=== PATIENT | female | born 1955 | race Caucasian/White ===

== ENCOUNTER 2019-12-16 08:31 | Outpatient (CLI) | payer MEDICARE, SELFPAY ==
--- NOTE | ~2019-12-16 | MM_ITS ---
EXAMINATION: MM screening effie BI w frankie HISTORY: Screening TECHNIQUE: Craniocaudal and mediolateral oblique 3-D tomosynthesis images were obtained and synthetic 2-D images were generated. CAD analysis was submitted and interpreted. COMPARISON: No prior mammogram is available for comparison at this institution. BREAST PARENCHYMAL COMPOSITION: There are scattered areas of fibroglandular density. FINDINGS: There is no evidence of suspicious mass, calcification, or architectural distortion to sugg est malignancy in either breast. There has been no suspicious interval change. IMPRESSION: 1. No mammographic evidence of malignancy. 2. Recommend routine screening mammography in one year. BI-RADS Category 1: Negative Reviewed, dictated and finalized at location A.
== END 2019-12-16 08:32 | disposition home or self-care (01) ==
PROVIDERS: PCP Internal Medicine; Visit Provider Clinical Nurse Specialist
DX: Z12.31 Encounter for screening mammogram for malignant neoplasm of breast (principal)
CPT/HCPCS: 77063; 77067

== ENCOUNTER 2020-01-12 12:38 | Outpatient (CLI) | payer MEDICARE, SELFPAY ==
--- NOTE | ~2020-01-12 | DEXA_ITS ---
Bone Density Report Name: Ashley Choi Age: 64 Sex: Female Ethnicity: White Date of : 1955 Indication: postmenopausal; asthma or emphysema; Referring Provider: Vane Zamora Study: Bone densitometry was performed. Exam Date: January 12, 2020 Accession number: [id number] Bone Density: Region BMD T-score Z-score Classification AP Spine (L1-L4) 1.174 1.2 3.0 Normal Femoral Neck (Left) 0.675 -1.6 0.0 Osteopenia Total Hip (Left) 0.942 0.0 1.3 Normal Total Hip Bilateral Avg 0.964 0.2 1.5 Normal Femoral Neck (Right) 0.703 -1.3 0.3 Osteopenia Total Hip (Right) 0.984 0.3 1.6 Normal World Health Organization criteria for BMD impression classify patients as: Normal (T-score at or above -1.0), Osteopenia (T-score between -1.0 and -2.5), or Osteoporosis (T-score at or below -2.5). 10-year Fracture Risk(1): Major Osteoporotic Fracture 8.0% Hip Fracture 0.8% Reported Risk Factors: [place] (), Neck BMD=0.675, BMI=41.9 Input outside FRAX(R) limits. Adjusted to:Itpylf=290 kg (1) FRAX(R) Version 3.08. Fracture probability calculated for an untreated patient. Fracture probability may be lower if the patient has received treatment. Clinical Information Provided by Patient: Has the following medical conditions: Asthma or Emphysema Patient maximum height was 68.5 Menopause Age: 53 No regular weight bearing exercise Drinks caffeinated beverages Onset of menses at age 12 Number of children 3 Impression: The patient has low bone mass, based on the Left Femoral Neck T-score. The patient has an estimated ten-year risk of hip fracture of 0.8% and an estimated ten-year risk of major fracture of 8%, based on the WHO FRAX algorithm. Discussion: BONE DENSITY IS LOW AT ONE OR MORE SKELETAL SITES. This patient's lowest T-score is low at one or more skeletal sites. It meets the World Health Organization's (WHO) criteria for ?low bone mass? (T-score between -1.0 and -2.5). The patient's 10-year risk of fracture as calculated by FRAX is less than the threshold where pharmacological therapy is recommended by the National Osteoporosis Foundation (NOF). However, all treatment decisions require clinical judgment and consideration of individual patient factors, including patient preferences, comorbidities, previous drug use, risk factors not captured in the FRAX model (e.g., frailty, falls, vitamin D deficiency, increased bone turnover, interval significant decline in bone density) and possible under or overestimation of fracture risk by FRAX. The patient should follow a healthful lifestyle (good nutrition with adequate calcium and vitamin D, and appropriate weight-bearing exercise). Follow-Up: Consider repeating this study in 2 to 3 years to reassess this patient's status, or sooner if there is some new clinical in
== END 2020-01-12 12:39 | disposition home or self-care (01) ==
LOC: ANHIMG 12:40
PROVIDERS: PCP Internal Medicine; Visit Provider Clinical Nurse Specialist
DX: Z78.0 Asymptomatic menopausal state (principal); M85.852 Other specified disorders of bone density and structure, left thigh; M85.851 Other specified disorders of bone density and structure, right thigh
CPT/HCPCS: 77080

== ENCOUNTER 2020-09-03 15:22 | Outpatient (CLI) | payer MEDICARE, SELFPAY ==
--- NOTE | ~2020-09-03 | US_ITS ---
EXAMINATION:US venous doppler LE LT INDICATION:Left pain TECHNIQUE: Multiple grayscale, color flow and Doppler images of the left lower extremity deep venous systems were obtained and reviewed. COMPARISON:No prior studies for comparison. FINDINGS: The common femoral, superficial femoral and popliteal veins demonstrate normal respiratory variation, augmentation and compressibility. Color flow is also seen within the posterior tibial, pe roneal, greater saphenous and profunda veins. IMPRESSION: 1: No lower extremity deep venous thrombosis. Reviewed, dictated and finalized at location B.
== END 2020-09-03 15:23 | disposition home or self-care (01) ==
PROVIDERS: PCP Internal Medicine; Visit Provider Clinical Nurse Specialist
DX: M25.569 Pain in unspecified knee (principal); R60.9 Edema, unspecified
CPT/HCPCS: 93971

== ENCOUNTER 2020-09-30 12:57 | Outpatient (CLI) | payer MEDICARE, SELFPAY ==
--- NOTE | ~2020-09-30 | XR_ITS ---
EXAMINATION: XR chest 2V DATE: 09/30/2020 13:17 INDICATION: Cough and wheezing TECHNIQUE: PA and lateral views of the chest are obtained. COMPARISON: None available FINDINGS: The lungs are free of acute opacities. There is no pleural effusion or pneumothorax. The ca rdiomediastinal silhouette is normal. There is moderate thoracic spondylosis. IMPRESSION: 1. No acute cardiopulmonary abnormality. Reviewed, dictated and finalized at location B.
== END 2020-09-30 12:58 | disposition home or self-care (01) ==
LOC: ANHIMG 13:01
PROVIDERS: PCP Internal Medicine; Visit Provider Clinical Nurse Specialist
DX: R06.02 Shortness of breath (principal)
CPT/HCPCS: 71046

== ENCOUNTER 2021-09-11 07:25 | Outpatient (CLI) | payer MEDICARE, SELFPAY ==
--- NOTE | 2021-09-11 07:39 | ECHO_ITS ---
Patient Info Name: Ashley Choi Age: 65 years : 1955 Gender: Female Ht: 68 in Wt: 340 lbs BSA: 2.81 m2 HR: 81 bpm BP: 157 / 107 mmHg Technical Quality: Fair Exam Date: 09/11/2021 8:12 AM Exam Location: [facility] Patient Status: Outpatient Admit Date: 09/11/2021 Staff Ordering Physician: Vane Zamora Leasing Assistant: Fang Cole RDCS Attending Provider: Vane Zamora Referring Physician: Sera INFANTE; Exam Type: CA echo doppler color flow Study Info Indications M79.89 - OTHER SPECIFIED SOFT TISSUE DISORDERS Complete two-dimensional, color flow and Doppler transthoracic echocardiogram is performed. Summary 1. Complete two-dimensional, color flow and Doppler transthoracic echocardiogram is performed. 2. Left ventricular chamber dimension is normal. 3. Left ventricular systolic function is normal, estimated at 60-65%. 4. The left ventricular diastolic function is grade I diastolic dysfunction. 5. E/e' 12 is mildly elevated. 6. Global longitudinal strain is abnormal at -14.7%. 7. There is trace tricuspid valve regurgitation. 8. No pulmonary hypertension, estimated pulmonary arterial systolic pressure is 28 mmHg. 9. There is mild pulmonic regurgitation. Left Ventricle E/e' 12 is mildly elevated. Global longitudinal strain is abnormal at -14.7%. Left ventricular chamber dimension is normal. Left ventricular systolic function is normal, estimated at 60-65%. The left ventricular diastolic function is grade I diastolic dysfunction. Right Ventricle Right ventricular systolic function is normal and with normal TAPSE 2.0 cm. Right ventricular chamber dimension is normal. Left Atria Left atrial chamber dimension is normal. Right Atria Right atrial chamber dimension is normal. Aortic Valve The aortic valve is trileaflet. There is no aortic valve stenosis. There is no aortic valve regurgitation. Pulmonic Valve There is mild pulmonic regurgitation. Mitral Valve There is no mitral valve stenosis. There is no mitral valve regurgitation. Tricuspid Valve There is trace tricuspid valve regurgitation. No pulmonary hypertension, estimated pulmonary arterial systolic pressure is 28 mmHg. Pericardium/Pleural There is no pericardial effusion. Inferior Vena Cava Normal inferior vena cava with >50% collapse upon inspiration consistent with normal right atrial pressure, 5 mmHg. Aorta The aortic root size at the sinus of Valsalva is normal. Left Ventricular Outflow Tract Name Value Normal LVOT 2D LVOT Diameter 1.9 cm LVOT Doppler LVOT Peak Gradient 5 mmHg LVOT Mean Gradient 3 mmHg LVOT VTI 24 cm LVOT VTI/AV VTI Ratio 0.9 LVOT Stroke Volume 69 ml LVOT CO 5.2 l/min LVOT CI 1.9 l/min/m2 Pulmonic Valve Name Value Normal
--- NOTE | 2021-09-11 13:26 | WPDPFTINT ---
PFT Procedure Performed PFT Procedure Performed Spirometry with Pre/Post Bronchodilator Plethysmography (Lung Vol) Diffusing Cap (DLCO) Flow Vol Loop PFT Interpretation This is a pulmonary function test with pre and post-bronchodilator spirometry, plethysmography and diffusing capacity. The test was performed and results interpreted in accordance with the 2019 and 2005 ATS/ERS Task Force guidelines respectively using the Global Lung Function Initiative-2012 reference equations. Patient demonstrated good effort and cooperation. Reproducibility criteria were met. The quality of the pre bronchodilator spirometry maneuver was Grade A and post bronchodilator spirometry maneuver was Grade A. Findings: Spirometry: The contour the inspiratory and expiratory flow tracing are normal. The pre bronchodilator FVC is 2.95 L, 87% predicted. The pre bronchodilator FEV1 is 2.38 L, 91% predicted. The pre bronchodilator FEV1: FVC ratio is 81%. The post bronchodilator FVC is 2.69 L, representing a 9% decrease. The post bronchodilator FEV1 is 2.36 L, representing 1% decrease. The post bronchodilator FEV1: FVC ratio was 88%. Plethysmography: The total lung capacity is 5.58 L, 98% predicted. The functional residual capacity is 2.18 L, 67% predicted. The residual volume is 2.11 L, 90% predicted. Diffusing capacity: The diffusing capacity unadjusted for hemoglobin and carboxyhemoglobin is 22.5, 100% predicted. The diffusing capacity adjusted for alveolar volume is 5.26, 127% predicted. Impression: The spirometry is normal without evidence of an obstructive abnormality. There is no significant improvement after inhaling a single dose of albuterol. The total lung capacity is normal with a decreased functional residual capacity. This is an abnormal but nonspecific lung volume pattern. The diffusing capacity is normal. There are no prior studies for comparison
== END 2021-09-11 07:26 | disposition home or self-care (01) ==
LOC: ANHCARD 07:30
PROVIDERS: PCP Internal Medicine; Visit Provider Clinical Nurse Specialist
DX: M79.89 Other specified soft tissue disorders (principal); R06.02 Shortness of breath; E78.5 Hyperlipidemia, unspecified; J45.909 Unspecified asthma, uncomplicated
CPT/HCPCS: 93306; 94060; 94726; 94729

== ENCOUNTER 2024-02-24 14:45 | Outpatient (CLI) | payer MEDICARE, SELFPAY ==
--- NOTE | ~2024-02-24 | XR_ITS ---
EXAMINATION: XR chest 2V 02/24/2024 15:03 INDICATION: Cough PROCEDURE: 2 view chest COMPARISON: 09/30/2020 FINDINGS: The lungs are clear. The cardiomediastinal silhouette is within normal limits. There are no pleural effusions. There is no pneumothorax suspected. IMPRESSION: 1: NO ACUTE CARDIOPULMONARY DISEASE. Reviewed, dictated and finalized at location B. ODONTAL ASSISTANT
== END 2024-02-24 14:46 | disposition home or self-care (01) ==
LOC: GOSHIMG 14:47
PROVIDERS: PCP Internal Medicine; Visit Provider Nurse Practitioner
DX: R05.9 Cough, unspecified (principal)
CPT/HCPCS: 71046

== ENCOUNTER 2024-07-10 10:59 | Outpatient (CLI) | payer MEDICARE, SELFPAY ==
--- NOTE | ~2024-07-10 | CT_ITS ---
CT Scan of the Chest without Contrast: Clinical Indication: Bronchitis Technique: Contiguous sections were acquired throughout the chest without intravenous contrast. Dose reduction technique was used on this scan by utilizing automated exposure control and iterative recon struction technique. The dose-length product (DLP) was 955.70 mGy-cm. Findings:. 13 mm hypodense nodule at the inferior aspect of the thyroid isthmus. There is no evidence of any significant mediastinal, hilar or axillary lymphadenopathy. The mediastin al soft tissues appear normal. There is no evidence of pleural or pericardial effusion. The lungs are clear. No pulmonary nodules or infiltrates are noted. Images through the upper abdomen reveal 2.3 cm right adrenal nodule. Impression: Clear lungs. 2.3 cm right adrenal nodule, indeterminate. Follow-up MR advised to attempt to confirm adenoma. 13 mm hypodense nodule at the thyroid isthmus. Follow-up thyroid ultrasound should be considered. Reviewed, dictated and finalized at [facility]. Impression: Clear lungs. 2.3 cm right adrenal nodule, indeterminate. Follow-up MR advised to attempt to confirm adenoma. 13 mm hypodense nodule at the thyroid isthmus. Follow-up thyroid ultrasound oly uld be considered.
--- OUTSIDE RECORDS SUMMARY | 2024-07-10 12:59 | XMS_ITS | Clinical Summary ---
Author Organization [facility] Address [address] [place] [id number] Phone Care Team Providers Care Workforce Staffing Advisor Name Role Phone Adria Haney MD Primary Care Provider [phone] Allergies Active Allergy Reactions Criticality Noted Date Comments Codeine Unknown 05/24/2013 Ramipril Unknown 05/24/2013 Medications ALBUTEROL INHALATION Take by inhalation. Active LORazepam (ATIVAN) 1 mg tablet Take 1 Tab by mouth every 6 hours as needed for Anxiety. 5 Tab None 05/25/2013 Active Active Problems Problem Noted Date Diagnosed Date Chest pain 05/24/2013 Panic attack 05/24/2013 GERD (gastroesophageal reflux disease) 4 HTN (hypertension) 05/24/2013 Immunizations Immunization Administration Dates Next Due Influenza Seasonal Unspecified Formulation IM Pneumococcal conjugate, unspecified formulation 04/15/2012 Family History Relation Name Status Comments Daughter 1 Alive Daughter 2 Alive Son Alive Social History Tobacco Use Types Packs/Day Years Used Date Smoking Tobacco: Never Alcohol Use Standard Drinks/Week Comments No 0 (1 standard drink = 0.6 oz pur e alcohol) Comments No Sex and Gender Information Value Date Recorded Sex Assigned at Not on file Legal Sex Female 12:16 PM CDT Gender Identity Not on file Sexual Orientation Not on file Occupation Industry Job Start Date Job End Date Not on file Not on file Not on file Not on file Last Filed Vital Signs Vital Sign Reading Time Taken Comments Blood Pressure 131/79 05/25/2013 4:41 AM CDT Pulse 78 05/24/2013 3:00 PM CDT Temperature 36.8 C (98.2 F) 05/25/2013 4:41 AM CDT Respiratory Rate 15 05/25/2013 4:41 AM CDT Oxygen Saturation 96% 05/25/2013 4:41 AM CDT Inhaled Oxygen Concentration - - Weight 145.9 kg (321 lb 9 oz) 05/25/2013 4:41 AM CDT Height 172.7 cm (5' 8 ) 05/24/2013 6:28 PM CDT Body Mass Index 48.89 05/24/2013 6:28 PM CDT Plan of Treatment Health Maintenance Due Date Last Done Comments DTAP/TDAP/TD VACCINES (1 - Tdap) 1972 BREAST CANCER SCREENING 1993 COLORECTAL SCREENING 1998 Colorectal Cancer Screening 1998 FIT-DNA Q 3 years 1998 FIT/FOBT Q 1 year 1998 Flex Sig/CT Colonography Q 5 years 1998 PNEUMOCOCCAL VACCINE 50+ YEARS (1 of 1 - PCV) 12/26/19 04 04/15/2012 ZOSTER VACCINE (1 of 2) 12/26/2003 OSTEOPOROSIS SCREENING 2018 INFLUENZA VACCINE (#1) 2023 2012 RSV VACCINE (60+ or ) (1 - 1-dose 75+ series) 2028 Insurance [facility] OPEN ACCESS O Advance Directives For more information, please contact: [phone] * Full Code (Latest Code Status on File) Date Activated Date Inactivated Comments 05/24/2013 6:29 PM 05/25/2013 2:34 PM Care Teams Workforce Staffing Advisor Relationship Specialty Start Date End Date Adria Haney MD [address] [facility] [place] [phone] PCP - General Internal Medicine 05/24/13
--- OUTSIDE RECORDS SUMMARY | 2024-07-10 12:59 | XMS_ITS | Clinical Summary ---
Author Organization [facility] Address [address] [place] [address] Care Team Providers Care Apartment House Manager Name Role Phone Lj Chamberlain DO Primary Care Provider [phone] Allergies Active Allergy Reactions Criticality Noted Date Comments Amlodipine Swelling,Rash Medium Reaction: swelling, rash, , Reaction: swelling, rash, Codeine Nausea only,Vomiting Reaction: Nausea, Vomiting, Ramipril Medications orvyqxxs-onj-ari n-FA-lutein (CENTRUM SILVER WOMEN) 8 mg iron-400 mcg-300 mcg tablet 0 0 7 Active omega 0-gsn-niz-fish oil (FISH OIL) 300-1,000 mg capsule,delayed release(DR/EC) [address] (PROTONIX) 40 mg EC tablet take 1 tablet by oral route every day [address] (PROTONIX) 40 mg EC tablet take 1 tablet by oral route every day 30 4 5 Active glucosamine-anne droitin (glucosamine-cho ndroitin) 500-400 mg capsule Take 2 tablets by mouth daily Active rizatriptan (MAXALT) 5 mg tablet Take 1 tablet (5 mg total) by mouth as needed Active famotidine (PEPCID) 40 mg tabletIndication s:Laryngeal spasm Take 1 tablet (40 mg total) by mouth nightly 90 tablet 3 2 Active calcium citrate-vitamin D3 200 mg-3.125 mcg (125 unit) tablet Take by mouth Active fluticasone propionate (FLONASE) 50 mcg/actuation nasal sprayIndications :Upper respiratory tract infection, unspecified type Administer 2 sprays into each nostril daily 1 each 4 Active triamcinolone (KENALOG) 0.1 % creamIndications :Contact dermatitis, unspecified contact dermatitis type, unspecified trigger Apply topically 3 (three) times a day for 10 days 28.4 g 4 Active albuterol HFA (PROVENTIL HFA,VENTOLIN HFA,PROAIR HFA) 90 mcg/actuation inhalerIndicatio ns:Acute cough Inhale 2 puffs every 6 (six) hours as needed for wheezing for up to 7 days 1 each 4 Active benzonatate (TESSALON) 100 mg capsuleIndicatio ns:Cough Take 1 capsule (100 mg total) by mouth 3 (three) times a day as needed for cough 42 capsule 4 Active Active Problems Problem Noted Date Diagnosed Date 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 Zachary Heard [phone] [address] [place] [address] Venous stasis 09/12/2020 Primary osteoarthritis of both knees 09/12/2020 Esophageal dysphagia 08/11/2017 Sprain of medial collateral ligament of right kn ee 11/20/2016 Morbid obesity with BMI of 45.0-49.9, adult 10/2016 GERD (gastroesophageal reflux disease) 4 Panic attack 05/24/2013 HTN (hypertension) 05/24/2013 Chronic cough Immunizations Immunization Administration Dates Next Due Influenza, Quad, Adjuvantate d, Intramuscular 11/28/2019 Influenza, Quadrivalent, Spl it, Preservative Free, Intramuscular 12/02/2018 Influenza, Trivalent, IM (MDV) 2012,2011,12/24/2010 Influenza, Trivalent, Preser vative Free, Intramuscular 01/05/2013 Pneumococcal Conjugate, Unspecified 04/15/2012 Pneumococcal Polysaccharide PPV23 05/04/2013,03/2005 Tdap 01/15/2020 Surgical History Surgery Date Site/Laterality Comments TUBAL LIGATION 1982 Bilateral tubal ligation TONSILLECTOMY 1961 Tonsillectomy Medical History Medical History Date Comments Hx Other Medical 1991 fatty cyst Hx Other Medical bronchitis , sw ollen glands Asthma Asthma Family History Medical History Relation Name Comments Coronary artery disease Father Lara nary artery disease; Other Father Alive and well; Other Mother Unknown; Heart disease Other 1 Family history of Cardiovascular disease; Diabetes Other 2 Family history of Diabetes mellitus; Hypertension Other 3 Family history of Hypertension; Relation Name Status Comments Father Alive Mother Alive Other 1 Other 2 Other 3 Social History Tobacco Use Types Packs/Day Years Used Date Smoking Tobacco: Never Smokeless Tobacco: Never Tobacco Cessation:Counseling Given: Not Answered Alcohol Use Standard Drinks/Week Comments No 0 (1 standard drink = 0.6 oz pur e alcohol) Comments Unknown Sex and Gender Information Value Date Recorded Sex Assigned at Not on file Legal Sex Female 6:28 PM PUBLIC WORKS COMMISSIONER Gender Identity Not on file Sexual Orientation Not on file Obstetrics History Last Filed Vital Signs Vital Sign Reading Time Taken Comments Blood Pressure 130/82 01/31/2024 8:27 AM PUBLIC WORKS COMMISSIONER Pulse 68 01/31/2024 8:27 AM PUBLIC WORKS COMMISSIONER Temperature 36.6 C (97.9 F) 01/31/2024 8:27 AM PUBLIC WORKS COMMISSIONER Respiratory Rate 20 01/31/2024 8:27 AM PUBLIC WORKS COMMISSIONER Oxygen Saturation 99% 01/31/2024 8:27 AM PUBLIC WORKS COMMISSIONER Inhaled Oxygen Concentration - - Weight 153.8 kg (339 lb) 01/31/2024 8:27 AM PUBLIC WORKS COMMISSIONER Height 172.7 cm (5' 8 ) 01/31/2024 8:27 AM PUBLIC WORKS COMMISSIONER Body Mass Index 51.54 01/31/2024 8:27 AM PUBLIC WORKS COMMISSIONER Plan of Treatment Health Maintenance Due Date Last Done Comments Breast Cancer Screening-Mammogram 1955 Depression Screening 1955 Fall Risk Assessment 1955 Hepatitis C Screening 1955 Hepatitis B Screening 12/26/1971 Zoster Vaccine (2 of 3) 09/17/2014 07/23/2014 Well Visit 65+ 2018 Osteoporosis Screening-Bone Density Scan 10/26/2019 10/25/2017 Influenza Vaccine (#1) 2023 3, 01/02/2022, 11/27/2020, Additional history exists Colon Cancer Screening-Colonoscopy 02/11/2025 02/11/2015, 02/11/2015 DTaP/Tdap/Td Vaccine (2 - Td or Tdap) 01/14/2030 01/15/2020 Pneumococcal vaccine 65+ Completed 014, 04/15/2012, 03/15/2005 Colon Cancer Screening-CT Colonography Discontinued 02/11/2015, 02/11/2015 Colon Cancer Screening-DNA Stool Discontinued 02/12/20 15, 02/11/2015 Colon Cancer Screening-FIT Discontinued 02/11/2015, Colon Cancer Screening-Sigmoidoscopy Discontinued 02/11/2015, 02/11/2015 Procedures Procedure Name Priority Date/Time Associated Diagnosis Comments DEXA AXIAL SKELETON BONE DENSITY 1 OR MORE SITES Schedule Routine, Read Routine (OP Routine) 10/25/2017 8:21 AM CDT Asymptomatic menopausal state COLONOSCOPY IMAGES 02/11/2015 from Last 3 Months or Most Recently Relevant to Health Maintenance Results * Dexa Axial Skeleton Bone Density 1 or 2 Site (10/25/2017 8:21 AM CDT) Anatomical Region Laterality Modality Body N/A Other 10/25/2017 8:22 AM CDT Impressions 10/25/2017 8:23 AM CDT Normal bone mineral density. COMMENT: W.H.O. defines the T-score of between -1 and -2.5 as osteopenia, the level at which there may be an increased risk of developing osteoporosis and fractures in the future. Osteoporosis is defined as T-score lower than -2.5 (significantly increased risk of fracture due to osteoporosis). T-score is a comparison to peak bone mineral density of young adult reference population. Z-score is a comparison to bone mineral density of sex and age group population. Electronically signed by: Darwin Maynard M.D. Narrative 10/25/2017 8:23 AM CDT EXAM: DEXA Bone Density Axial HISTORY: Asymptomatic menopausal state Assess bone density COMPARISON: None FINDINGS: The mean bone mineral content of the lumbar spine is 1.148 g/cm2 . The T-score is 0.9 consistent with normal bone mineral density. The mean bone mineral content of the hip is 0.742 g/cm2 . The T-score is -1.0 consistent with normal bone mineral density. Procedure Note Darwin Maynard MD - 10/25/2017 EXAM: DEXA Bone Density Axial HISTORY: Asymptomatic menopausal state Assess bone density COMPARISON: None FINDINGS: The mean bone mineral content of the lumbar spine is 1.148 g/cm2 . The T-score is 0.9 consistent with normal bone mineral density. The mean bone mineral content of the hip is 0.742 g/cm2 . The T-score is -1.0 consistent with normal bone mineral density. IMPRESSION: Normal bone mineral density. COMMENT: W.H.O. defines the T-score of between -1 and -2.5 as osteopenia, the level at which there may be an increased risk of developing osteoporosis and fractures in the future. Osteoporosis is defined as T-score lower than -2.5 (significantly increased risk of fracture due to osteoporosis). T-score is a comparison to peak bone mineral density of young adult reference population. Z-score is a comparison to bone mineral density of sex and age group population. Electronically signed by: Darwin Maynard M.D. Alison Ramon ASSISTANT COMMISSIONER IMG DXA PROCEDURES Final Res ult * COLONOSCOPY IMAGES (02/11/2015) Anatomical Region Laterality Modality Other Narrative 02/11/2015 Ordered by an unspecified provider. Historical Provider GI PROCEDURE ORDERABLES F inal Result from Last 3 Months or Most Recently Relevant to Health Maintenance Insurance MEDICARE [employer] SENIOR SUPPLEMENT MEDICARE [employer] SENIOR SUPPLEMENT Care Teams Apartment House Manager Relationship Specialty Start Date End Date Lj Chamberlain DO PCP - General Internal Medicine 10/05/16
--- OUTSIDE RECORDS SUMMARY | 2024-07-10 12:59 | XMS_ITS | Continuity of Care Document ---
Author Organization [facility] Address [address] [place] [address] [place] [address] Phone Care Team Providers Care Bomb Loader Name Role Phone Neymar Abrams MD Unavailable Unavailable Procedures Procedure Date Office/outpatient Visit, [facility] Removal Of Skin Lesion Advance Directives Directive Yes / No Effective Date File Name No Information Encounters Encounter Description Practice Location Reason(s) For Visit Diagnoses Date Provider Providers Copied on Encounter Office/outpat ient Visit, [facility], [id number] [place] [address] [address], [place], [place], [id number], [place] tel:[phone] [address] [place] Griselda Wilkins No Information 1 Aliza Blackmon. [address] [facility], [place], [place], [id number], [place]. tel:[phone] Family History Family Member Type Diagnosis Age At Onset No Information Payers Payer name Insurance type Covered constitution party ID Authoriza tidru(s) [facility] [id number] Social History Type Description Quantity Date Captured Comments Sex Female Smoking Status No Information Chief Complaint And Reason For Visit No Information Reason For Referral Reason For Referral No Information History Of Present Illness Encounter Date Complaint History Of Prese nt Illness No Information Functional Status Date Functional Assessmen t No Information Instructions Date Instruction Additional Infor mation No Information Assessments Type Assessment Date No Information Patient Care Teams Name Effective Dates (start - stop) Status Members No Information
--- OUTSIDE RECORDS SUMMARY | 2024-07-10 12:59 | XMS_ITS | Referral Summary ---
Author Organization [facility] Address [address] [place] [address] Care Team Providers Care Sole Ruffer Name Role Phone Lj Chamberlain DO Primary Care Provider [phone] Allergies Active Allergy Reactions Criticality Noted Date Comments Amlodipine Swelling,Rash Medium Reaction: swelling, rash, , Reaction: swelling, rash, Codeine Nausea only,Vomiting Reaction: Nausea, Vomiting, Ramipril Medications bhgmnygy-usa-nky n-FA-lutein (CENTRUM SILVER WOMEN) 8 mg iron-400 mcg-300 mcg tablet 0 0 7 Active omega 0-qyf-rtl-fish oil (FISH OIL) 300-1,000 mg capsule,delayed release(DR/EC) [...] testing [facility] Dr[facility] Zachary Heard [phone] [address] [place] [address] Venous stasis 09/12/2020 Primary osteoarthritis of both [...] 04/15/2012 Pneumococcal Polysaccharide PPV23 05/04/2013,03/2005 Tdap 01/15/2020 Social History Tobacco Use Types Packs/Day Years Used Date Smoking Tobacco: Never Smokeless Tobacco: Never Tobacco Cessation:Counseling Given: Not Answered Alcohol Use Standard Drinks/Week Comments No 0 (1 standard drink = 0.6 oz pur e alcohol) Comments Unknown Sex and Gender Information Value Date Recorded Sex Assigned at Not on file Legal Sex Female 6:28 PM COMMUTATOR TESTER Gender Identity Not on file Sexual Orientation Not on file Last Filed Vital Signs Vital Sign Reading Time Taken Comments Blood Pressure 130/82 01/31/2024 8:27 AM COMMUTATOR TESTER Pulse 68 01/31/2024 8:27 AM COMMUTATOR TESTER Temperature 36.6 C (97.9 F) 01/31/2024 8:27 AM COMMUTATOR TESTER Respiratory Rate 20 01/31/2024 8:27 AM COMMUTATOR TESTER Oxygen Saturation 99% 01/31/2024 8:27 AM COMMUTATOR TESTER Inhaled Oxygen Concentration - - Weight 153.8 kg (339 lb) 01/31/2024 8:27 AM COMMUTATOR TESTER Height 172.7 cm (5' 8 ) 01/31/2024 8:27 AM COMMUTATOR TESTER Body Mass Index 51.54 01/31/2024 8:27 AM COMMUTATOR TESTER Plan of Treatment Not on file Procedures Procedure Name Priority Date/Time Associated Diagnosis [...] with normal bone mineral density. Procedure Note Drawin Maynard MD - 10/25/2017 EXAM: DEXA Bone [...] population. Electronically signed by: Darwin Maynard M.D. us Alison Ramon NP IMG DXA PROCEDURES Final Res ult * COLONOSCOPY IMAGES (02/11/2015) Anatomical Region Laterality Modality Other Narrative 02/11/2015 Ordered by an unspecified provider. us Historical Provider MD LANGE PROCEDURE ORDERABLES F inal Result from Last 3 Months or Most Recently Relevant to Health Maintenance Insurance MEDICARE [facility] MEDICARE AET[employer] SENIOR SUPPLEMENT Care Teams Sole Ruffer Relationship Specialty Start Date End Date Lj Chamberlain DO PCP - General Internal Medicine 10/05/16
--- OUTSIDE RECORDS SUMMARY | 2024-07-10 12:59 | XMS_ITS | Clinical Summary ---
Author Organization [facility] Address [address] [place] [address] Care Team Providers Care Barrel Cooper Name Role Phone Lj Chamberlain DO Primary Care Provider [phone] Ran oSriano MD Unavailable Source Comments [facility],non-owned Affiliates and Associated Physician Practices is amultiple site organization consisting of ambulatory clinics and hospital sitesin [place], [place], [place] and [place]. This disclosure is being madepursuant to the Care Everywhere program and may not contain all information available regarding this patient. Last updated 17.[facility] Allergies Active Allergy Reactions Criticality Noted Date Comments Amlodipine Base Rash,Swelling Medium Reaction: swelling, rash, , Reaction: swelling, rash, Codeine Nausea and/or Vomiting,Vomiting Reaction: Nausea, Vomiting, Ramipril Angioedema High Medications * Be aware that medications may not be up to date on this document. Alwaysverify current medications with the patient. albuterol HFA (PROAIR HFA) 108 (90 BASE) MCG/ACT inhaler Inhale 2 puffs by mouth as needed 03/20/19 17 Active mometasone (ASMANEX) 110 MCG/INH inhaler Inhale 1 puff by mouth as needed Active IRON PO Take 1 tablet by mouth once daily 03/20/19 17 Active pantoprazole EC (PROTONIX) 40 MG tablet Take 40 mg by mouth once daily 02/01/20 15 Active [place]-3 Fatty Acids (FISH OIL PO) Take 2,000 mg by mouth once daily Active rizatriptan (MAXALT) 5 MG tablet Take 5 mg by mouth as needed for Migraine No more than 30 mg in a 24 hour period. Active Glucosamine-Chondr oitin (GLUCOSAMINE CHONDR COMPLEX PO) Take 2 tablets by mouth once daily Active Acetaminophen (TYLENOL ARTHRITIS PAIN PO) Take by mouth as needed Active Multiple Vitamins-Minerals (CENTRUM SILVER PO) Take 1 tablet by mouth once daily Active atorvastatin (LIPITOR) 10 MG tablet Take 10 mg by mouth at bedtime 07/30/19 Active terbinafine (LAMISIL) 250 MG tablet Take 250 mg by mouth once daily 08/07/19 Active celecoxib (CELEBREX) 200 MG capsuleIndications :Left knee pain, unspecified chronicity,Venous stasis,Primary osteoarthritis of both knees Take 1 (one) capsule by mouth 2 times daily 60 capsule 5 09/07/19 Active Additional Information Patient not taking.Reported on 09/12/2020 Active Problems Problem Noted Date Diagnosed Date Primary osteoarthritis of both knees 09/12/2020 Venous stasis 09/12/2020 Esophageal dysphagia 08/11/2017 Immunizations Immunization Administration Dates Next Due INFLUENZA VACCINE, QUADR. (F LUZONE; FLULAVAL; FLUARIX; AFLURIA QUADRIVALENT; 6MO+), 0.5 ML (IIV4) 12/02/2018 Social History Tobacco Use Types Packs/Day Years Used Date Smoking Tobacco: Never Smokeless Tobacco: Never Alcohol Use Standard Drinks/Week Comments Yes 0 (1 standard drink = 0.6 oz pur e alcohol) Occassional beer Comments Unknown Sex and Gender Information Value Date Recorded Sex Assigned at Not on file Legal Sex Female 2:33 PM CDT Gender Identity Not on file Sexual Orientation Not on file Last Filed Vital Signs Vital Sign Reading Time Taken Comments Blood Pressure 137/76 08/13/2017 11:37 AM CDT Pulse 82 08/13/2017 11:37 AM CDT Temperature 36.6 C (97.9 F) 08/13/2017 11:09 AM CDT Respiratory Rate 18 08/13/2017 11:37 AM CDT Oxygen Saturation 98% 08/13/2017 11:37 AM CDT Inhaled Oxygen Concentration - - Weight 157.9 kg (348 lb) 09/12/2020 8:46 AM CDT Height 172.7 cm (5' 8 ) 09/12/2020 8:46 AM CDT Body Mass Index 52.91 09/12/2020 8:46 AM CDT Plan of Treatment Health Maintenance Due Date Last Done Comments BONE DENSITY TESTING 1955 COLOGUARD (AGES 45-75) - COLON CA SCREENING 1953 COLON MONITORING 1953 COLONOSCOPY - COLON CA SCREENING 1953 CT COLONOGRAPHY - COLON CA SCREENING 1953 Colorectal Cancer Screening 1955 FIT - COLON CA SCREENING 1953 FLEX SIG - COLON CA SCREENING 1955 MAMMOGRAM 1955 MEDICARE AWV 12 MONTHS 1953 HEPATITIS C SCREENING 12/21/1971 DTAP/TDAP/TD VACCINES (1 - Tdap) 1972 PNEUMOCOCCAL VACCINE 50+ (1 of 1 - PCV) 12/26/2003 ZOSTER VACCINE (1 of 2) 12/26/2003 Respiratory Syncytial Virus (RSV) Vaccine Pt: or over 60 yrs (1 - Risk 60-74 years 1-dose series) 2013 SCREENING FOR DIABETES 09/06/2020 COVID-19 VACCINE ( - season) 2023 DEPRESSION SCREENING 03/15/2024 INFLUENZA VACCINE (Season Ended) 2024 12/02/2018, 01/05/2013, 2012, Additional history exists HEPATITIS B VACCINE Aged Out No longe r eligible based on patient's age to complete this topic HIB VACCINE Aged Out No longer eligi ble based on patient's age to complete this topic HPV VACCINE Aged Out No longer eligi ble based on patient's age to complete this topic MENINGOCOCCAL (Group B) VACCINE SHARED DECISION-MAKING Aged Out No longer eligible based on patient's age to complete this topic MENINGOCOCCAL GROUPS A/C/Y/W VACCINE Aged Out No longer eligible based on patient's age to complete this topic Goals Goal Patient Goal Type Associated Problems Recent Progress Patient-Stated? Author Safety General On track( 018 10:41 AM CDT) Nikia Damian, RN Note: Expected end date: Ongoing Interventions: Your nurse will assess your risk for falls/injury each visit Use appropriate and safe transfer methods Medication Management General On track( 018 10:41 AM CDT) Nikia Damian, RN Note: Expected end date: Ongoing Interventions: Take all medications as prescribed Let your doctor know right away about any changes in your medications Insurance [facility] MEDICARE MEDICARE SUPPLEMENT PAYOR GENERIC Care Teams Barrel Cooper Relationship Specialty Start Date End Date Lj Chamberlain DO PCP - General 08/11/17 [place] [id number] [address] [address] Surgeon Orthopedic Surgery 09/06/20
== END 2024-07-10 11:00 | disposition home or self-care (01) ==
PROVIDERS: PCP Internal Medicine; Visit Provider Physician Assistant
DX: J18.9 Pneumonia, unspecified organism (principal); J45.909 Unspecified asthma, uncomplicated; R05.2 Subacute cough; R06.02 Shortness of breath; D35.01 Benign neoplasm of right adrenal gland
CPT/HCPCS: 71250

== ENCOUNTER 2024-07-25 12:56 | Outpatient (CLI) | payer MEDICARE, SELFPAY ==
--- OUTSIDE RECORDS SUMMARY | 2024-07-25 13:12 | XMS_ITS | Clinical Summary ---
Author Organization [facility] Address [address] [place] [address] Care Team Providers Care Dentistry Professor Name Role Phone Lj Chamberlain DO Primary Care Provider [phone] Allergies Active Allergy Reactions Criticality Noted Date Comments Amlodipine Swelling,Rash Medium Reaction: swelling, rash, , Reaction: swelling, rash, Codeine Nausea only,Vomiting Reaction: Nausea, Vomiting, Ramipril Medications ubwmhvlc-xwr-ksi n-FA-lutein (CENTRUM SILVER WOMEN) 8 mg iron-400 mcg-300 mcg tablet 0 0 7 Active omega 3-gdx-cyq-fish oil (FISH OIL) 300-1,000 mg capsule,delayed release(DR/EC) [...] testing [facility] Zachary Heard [phone] [address] [place] [address] Venous stasis 09/12/2020 Primary osteoarthritis of both [...] on file Legal Sex Female 6:28 PM RN L AND D Gender Identity Not on file Sexual Orientation Not on file Obstetrics History Last Filed Vital Signs Vital Sign Reading Time Taken Comments Blood Pressure 130/82 01/31/2024 8:27 AM RN L AND D Pulse 68 01/31/2024 8:27 AM RN L AND D Temperature 36.6 C (97.9 F) 01/31/2024 8:27 AM RN L AND D Respiratory Rate 20 01/31/2024 8:27 AM RN L AND D Oxygen Saturation 99% 01/31/2024 8:27 AM RN L AND D Inhaled Oxygen Concentration - - Weight 153.8 kg (339 lb) 01/31/2024 8:27 AM RN L AND D Height 172.7 cm (5' 8 ) 01/31/2024 8:27 AM RN L AND D Body Mass Index 51.54 01/31/2024 8:27 AM RN L AND D Plan of Treatment Health Maintenance Due Date Last Done Comments Breast Cancer Screening-Mammogram 1955 Depression Screening 1955 Fall Risk Assessment 1955 Hepatitis C Screening 1955 Hepatitis B Screening 12/26/1971 Zoster Vaccine (2 of 3) 09/17/2014 07/23/2014 Well Visit 65+ 2018 Osteoporosis Screening-Bone Density Scan 10/26/2019 10/25/2017 Influenza Vaccine (Season Ended) 2024 11/30/2022, 01/02/2022, 11/27/2020, Additional history exists Colon Cancer [...] signed by: Darwin Maynard M.D. Alison Ramon MULTIPLE SLIDE OPERATOR IMG DXA PROCEDURES Final Res ult * COLONOSCOPY IMAGES (02/11/2015) Anatomical Region Laterality Modality Other Narrative 02/11/2015 Ordered by an unspecified provider. Historical Provider GI PROCEDURE ORDERABLES F inal Result from Last 3 Months or Most Recently Relevant to Health Maintenance Insurance MEDICARE [employer] SENIOR SUPPLEMENT MEDICARE AET[employer] SENIOR SUPPLEMENT Care Teams Dentistry Professor Relationship Specialty Start Date End Date Lj Chamberlain DO PCP - General Internal Medicine 10/05/16
--- OUTSIDE RECORDS SUMMARY | 2024-07-25 13:12 | XMS_ITS | Referral Summary ---
Author Organization [facility] Address [address] [place] [address] Care Team Providers Care Water Filtration Technician Name Role Phone Lj Chamberlain DO Primary Care Provider [phone]- [phone] Allergies Active Allergy Reactions Criticality Noted Date Comments Amlodipine Swelling,Rash Medium Reaction: swelling, rash, , Reaction: swelling, rash, Codeine Nausea only,Vomiting Reaction: Nausea, Vomiting, Ramipril Medications vfderznx-dip-klc n-FA-lutein (CENTRUM SILVER WOMEN) 8 mg iron-400 mcg-300 mcg tablet 0 0 7 Active omega 8-kie-hzo-fish oil (FISH OIL) 300-1,000 mg capsule,delayed release(DR/EC) [...] testing [facility] Zachary Heard [phone] [address] [place] [address] Venous stasis 09/12/2020 Primary osteoarthritis of both [...] on file Legal Sex Female 6:28 PM CLASSROOM AIDE Gender Identity Not on file Sexual Orientation Not on file Last Filed Vital Signs Vital Sign Reading Time Taken Comments Blood Pressure 130/82 01/31/2024 8:27 AM CLASSROOM AIDE Pulse 68 01/31/2024 8:27 AM CLASSROOM AIDE Temperature 36.6 C (97.9 F) 01/31/2024 8:27 AM CLASSROOM AIDE Respiratory Rate 20 01/31/2024 8:27 AM CLASSROOM AIDE Oxygen Saturation 99% 01/31/2024 8:27 AM CLASSROOM AIDE Inhaled Oxygen Concentration - - Weight 153.8 kg (339 lb) 01/31/2024 8:27 AM CLASSROOM AIDE Height 172.7 cm (5' 8 ) 01/31/2024 8:27 AM CLASSROOM AIDE Body Mass Index 51.54 01/31/2024 8:27 AM CLASSROOM AIDE Plan of Treatment Not on file Procedures [...] Recently Relevant to Health Maintenance Insurance MEDICARE [facility] MEDICARE AETNA SENIOR SUPPLEMENT Care Teams Water Filtration Technician Relationship Specialty Start Date End Date Lj Chamberlain DO PCP - General Internal Medicine 10/05/16
--- OUTSIDE RECORDS SUMMARY | 2024-07-25 13:12 | XMS_ITS | Continuity of Care Document ---
Author Organization [facility] Address [address] [place] [address] [place] [address] Phone Care Team Providers Care Extrusion Die Template Maker Name Role Phone Neymar Abrams MD Unavailable Unavailable Procedures Procedure Date Office/outpatient Visit, [facility] Removal Of Skin Lesion Advance Directives Directive Yes / No Effective Date File Name No Information Encounters Encounter Description Practice Location Reason(s) For Visit Diagnoses Date Provider Providers Copied on Encounter Office/outpat ient Visit, [facility], [address] [place] [address] [address], [place], [place], [id number], [place] tel:[phone] [address] Griselda Wilkins No Information 1 Aliza [place]mon. [address] [facility], [place], [place], [id number], [place]. tel:[phone] Family History Family Member Type Diagnosis Age At Onset No Information Payers Payer name Insurance type Covered constitution party ID Authoriza tidru(s) [facility] [id number] Social History Type Description Quantity Date Captured [...]
--- OUTSIDE RECORDS SUMMARY | 2024-07-25 13:12 | XMS_ITS | Clinical Summary ---
Author Organization [facility] Address [address] [place] [address] Phone Care Team Providers Care Wire Wrapping Machine Operator Name Role Phone Adria Haney MD Primary Care Provider [phone] Allergies Active Allergy Reactions Criticality Noted Date [...] (1 - 1-dose 75+ series) 2028 Insurance [facility] OPEN ACCESS O Advance Directives For more information, please contact: [phone] * Full Code (Latest Code Status on File) Date Activated Date Inactivated Comments 05/24/2013 6:29 PM 05/25/2013 2:34 PM Care Teams Wire Wrapping Machine Operator Relationship Specialty Start Date End Date Adria Haney MD [address] [facility] [place] [address] PCP - General Internal Medicine 05/24/13
--- OUTSIDE RECORDS SUMMARY | 2024-07-25 13:12 | XMS_ITS | Clinical Summary ---
Author Organization [facility] Address [address] [place] [address] Care Team Providers Care Paid Search Specialist Name Role Phone Lj Chamberlain DO Primary Care Provider [phone] Ran Soriano MD Unavailable [phone] Source Comments [facility],non-owned Affiliates and Associated Physician Practices is amultiple site organization consisting of ambulatory clinics and hospital sitesin [place], [place], [place] and [place]. This disclosure is being madepursuant to the Care Everywhere program and may not contain all information available regarding this patient. Last updated 17.[facility] Allergies Active Allergy Reactions Criticality Noted Date [...] by mouth once daily 02/01/20 15 Active [place]-3 Fatty Acids (FISH OIL PO) Take 2,000 [...] - COLON CA SCREENING 1953 MAMMOGRAM 1953 HEPATITIS C SCREENING 12/21/1971 DTAP/TDAP/TD VACCINES [...] On track( 018 10:41 AM CDT) Nikia Damian RN Note: Expected end date: Ongoing Interventions: Your nurse will assess your risk for falls/injury each visit Use appropriate and safe transfer methods Medication Management General On track( 018 10:41 AM CDT) Nikia Damian RN Note: Expected end date: Ongoing Interventions: Take all medications as prescribed Let your doctor know right away about any changes in your medications Insurance [facility] MEDICARE MEDICARE SUPPLEMENT PAYOR GENERIC Care Teams Paid Search Specialist Relationship Specialty Start Date End Date Lj Chamberlain DO PCP - General 08/11/17 [place] [address] [address] Surgeon Orthopedic Surgery 09/06/20
[2024-07-25] MEDS: METHACHOLINE CHLORIDE 18 ML VIAL.NEB INHALATION (13:57)
--- NOTE | 2024-07-25 15:14 | WPDMETH ---
Methacholine Procedure Perform Procedure Performed Methacholine Challenge Methacholine Challenge Methacholine Challenge: This is a methacholine challenge test. The test was performed and interpreted in accordance with the 2017 ERS technical standard, endorsed by the ATS, using the GLI 2012 reference equations. Testing was performed with increasing doses of nebulized methacholine following a quadrupling dosage protocol. The methacholine dose was delivered via the Think2 Micromist nebulizer using a 1-minutes tidal breathing protocol. The best post-methacholine FEV1 values were used to determine the change from the post diluent FEV1. The delivered dose of methacholine was used to calculate the provocative dose causing a 20% fall in FEV1 (PD20). Findings: Baseline FEV1 2.19 L, 87% predicted. Post diluent FEV1 2.10 L Post 1.81 mcg methacholine FEV1 2.07 L, decreased 1% Post 7.26 mcg methacholine FEV1 2.21 L, increased 6% Post 29.03 mcg methacholine FEV1 2.23 L, increased 6% Post 116.1 mcg methacholine FEV1 2.10 L, decreased 0% Post 464.4 mcg methacholine FEV1 2.03 L, decreased 3% Post albuterol nebulization FEV1 2.14 L Impression: The PD20 is > 400 mcg which is categorized as normal airway hyperresponsiveness. I have a methacholine challenge report from [facility] on 05/19/2022, that demonstrated a 14.2% decrease in the FEV1 after the 25 mg/ml methacholine dose (highest dose). The hand written impression states: negative methacholine challenge test for bronchial hyperreactivity . Of note, the expiratory flow tracing demonstrates a reproducible mid expiratory plateau referred to as the knee pattern. This knee pattern can be a normal variant or pathologic and has been attributed to a choke point section of the bronchial tree. The normal variant is more common in younger female patients, decreases with age and is more pronounced in the post bronchodilator efforts. The pattern has also been described with kyphosis, kyphoscoliosis, central obstructing masses, and post lung transplantation. The knee pattern was also present on a methacholine challenge report from [facility] on 05/19/2022. Clinical correlation is recommended.
== END 2024-07-25 12:57 | disposition home or self-care (01) ==
LOC: ANHPFT 13:02
PROVIDERS: PCP Internal Medicine; Visit Provider Physician Assistant
DX: J45.909 Unspecified asthma, uncomplicated (principal); R06.02 Shortness of breath; J18.9 Pneumonia, unspecified organism
CPT/HCPCS: 94070; J7674

== ENCOUNTER 2024-09-28 09:31 | Outpatient (CLI) | payer MEDICARE, SELFPAY ==
--- NOTE | ~2024-09-28 | MM_ITS ---
EXAMINATION: MM screening effie BI w frankie HISTORY: Screening TECHNIQUE: Craniocaudal and mediolateral oblique 3-D tomosynthesis images were obtained and synthetic 2-D images were generated. CAD analysis was submitted and interpreted. COMPARISON: Comparison to multiple prior studies sequentially, with oldest reviewed study dated 05/2019. BREAST PARENCHYMAL COMPOSITION: Not Dense: The breasts are almost entirely fatty. FINDINGS: There is no evidence of suspicious mass, calcification, or architectural distortion to sugg est malignancy in either breast. There has been no suspicious interval change. IMPRESSION: 1. No mammographic evidence of malignancy. 2. Recommend routine screening mammography in one year. BI-RADS Category 1: Negative Reviewed, dictated and finalized at location B.
--- OUTSIDE RECORDS SUMMARY | 2024-09-28 09:39 | XMS_ITS | Clinical Summary ---
Author Organization [facility] Address [address] [place] [phone] Phone Care Team Providers Care Track Rider Name Role Phone Adria Haney MD Primary Care Provider [phone] Allergies Active Allergy Reactions Criticality Noted Date [...] 4:41 AM CDT Height 172.7 cm (5' 8) 05/24/2013 6:28 PM CDT Body Mass Index [...] 12/26/2003 OSTEOPOROSIS SCREENING 2018 INFLUENZA VACCINE (#1) 2024 2012 RSV VACCINE (60+ or ) (1 - 1-dose 75+ series) 2028 Insurance [facility] OPEN ACCESS O Advance Directives For more information, please contact: [phone] * Full Code (Latest Code Status on File) Date Activated Date Inactivated Comments 05/24/2013 6:29 PM 05/25/2013 2:34 PM Care Teams Track Rider Relationship Specialty Start Date End Date Adria Haney MD [address] [facility] [place] [phone] PCP - General Internal Medicine 05/24/13
--- OUTSIDE RECORDS SUMMARY | 2024-09-28 09:39 | XMS_ITS | Clinical Summary ---
[facility] Organization [facility] Address [address] [place] [address] Care Team Providers Care Project Portfolio Analyst Name Role Phone Lj Chamberlain DO Primary Care Provider [phone]- [phone] Allergies Active Allergy Reactions Criticality Noted Date Comments Amlodipine Swelling,Rash Medium Reaction: swelling, rash, , Reaction: swelling, rash, Codeine Nausea only,Vomiting Reaction: Nausea, Vomiting, Ramipril Medications aqbglfyx-jss-hgq n-FA-lutein (CENTRUM SILVER WOMEN) 8 mg iron-400 mcg-300 mcg tablet 0 0 7 Active omega 6-nki-tca-fish oil (FISH OIL) 300-1,000 mg capsule,delayed release(DR/EC) [...] testing [facility] Dr. Zachary Heard [phone] [place] [address] Venous stasis 09/12/2020 Primary osteoarthritis of both knees 09/12/2020 Esophageal dysphagia 08/11/2017 Sprain of medial collateral ligament of right kn ee 11/20/2016 Morbid obesity with BMI of 45.0-49.9, adult 10/2016 GERD (gastroesophageal reflux disease) 4 Panic attack 05/24/2013 HTN (hypertension) 05/24/2013 Chronic cough Encounters Date Type Department Care Team Description 08/29/2024 1:45 PM CDT - 08/29/2024 11:59 PM CDT Hospital Encounter [facility] [address] [place] [address] Nontoxic single thyroid nodule Discharge Disposition: Discharge to home or self care 08/23/2024 Telephone [facility] Radiology [address] [place] [address] Montserrat Serrano RN 08/23/2024 Telephone [facility] [address] [place] [address] Montserrat Serrano RN 08/22/2024 Telephone [facility] Radiology [address] [place] [address] Montserrat Serrano RN 08/04/2024 3:26 PM CDT - 08/04/2024 11:59 PM CDT Hospital Encounter [facility] [address] [place] [address] Nontoxic single thyroid nodule Discharge Disposition: Discharge to home or self care from Last 3 Months Immunizations Immunization Administration Dates Next Due Influenza, [...] on file Legal Sex Female 6:28 PM SILVER WRAPPER Gender Identity Not on file Sexual Orientation Not on file Obstetrics History Last Filed Vital Signs Vital Sign Reading Time Taken Comments Blood Pressure 130/82 01/31/2024 8:27 AM SILVER WRAPPER Pulse 68 01/31/2024 8:27 AM SILVER WRAPPER Temperature 36.6 C (97.9 F) 01/31/2024 8:27 AM SILVER WRAPPER Respiratory Rate 20 01/31/2024 8:27 AM SILVER WRAPPER Oxygen Saturation 99% 01/31/2024 8:27 AM SILVER WRAPPER Inhaled Oxygen Concentration - - Weight 153.8 kg (339 lb) 01/31/2024 8:27 AM SILVER WRAPPER Height 172.7 cm (5' 8) 01/31/2024 8:27 AM SILVER WRAPPER Body Mass Index 51.54 01/31/2024 8:27 AM SILVER WRAPPER Plan of Treatment Health Maintenance Due Date [...] Procedure Name Priority Date/Time Associated Diagnosis Comments US GUIDED THYROID FINE NEEDLE ASPIRATION 1ST LESION Schedule Routine, Read Routine (OP Routine) 08/29/2024 3:05 PM CDT Nontoxic single thyroid nodule CYTOLOGY Routine 08/29/2024 2:44 PM CDT Nontoxic single thyroid nodule US THYROID Schedule Routine, Read Routine (OP Routine) 08/04/2024 4:16 PM CDT Nontoxic single thyroid nodule DEXA AXIAL SKELETON BONE DENSITY 1 OR MORE SITES Schedule Routine, Read Routine (OP Routine) 10/25/2017 8:21 AM CDT Asymptomatic menopausal state COLONOSCOPY IMAGES 02/11/2015 from Last 3 Months or Most Recently Relevant to Health Maintenance Results * US Guided Thyroid Fine Needle Aspiration 1st Lesion (08/29/2024 3:05 PM CDT) Anatomical Region Laterality Modality Thyroid N/A Ultrasound 08/29/2024 4:59 PM CDT Impressions 08/29/2024 4:59 PM CDT 1. Successful thyroid biopsy of the right isthmus thyroid nodule. Electronically signed by: CYRUS Amaral 08/29/2024 4:59 PM CDT EXAMINATION: ULTRASOUND-GUIDED THYROID FINE NEEDLE ASPIRATION HISTORY: 68-year-old female with right hypoechoic isthmus nodule here for fine-needle aspiration COMPARISON: Thyroid sonogram 08/04/2024 FINDINGS: Biopsy #: 1 Nodule reference number based on prior diagnostic ultrasound: 1 Size: 1.9 cm craniocaudal x 0.9 cm transverse x 1.4 cm AP Maximum Size: 1.9 cm Location: Right isthmus ACR TI-RADS risk category: 4 Reason for biopsy: meets ACR TI-RADS criteria FINE NEEDLE ASPIRATION: The procedure for ultrasound-guided FNA and its benefits and risks were explained to the patient. Risks were explained to include, but not be limited to, hemorrhage, infection, injury to adjacent organs, non-diagnostic specimen and adverse reaction to medications administered. The patient voiced understanding and wished to proceed and signed the consent form. A site was localized for fine needle aspiration. The site was prepped and draped in the usual manner. 3 mL of 1% Lidocaine was used for local anesthesia. 6 passes were made with 25 gauge needles into the lesion. Appropriate needle localization was documented with continuous sonographic guidance. The fine needle aspirates were handed to the electrophysiology technician present during the procedure. Please refer to the dictated cytology report for final interpretation. The patient's skin was cleaned and dressed. The patient tolerated the procedure well without immediate complication. Patricia Kitchen PA-C, the Physician Electron Beam Photo Mask Maker, was present from the beginning to the end of the procedure. Patricia VO performed the biopsy. Dr. Seth Rodriguez (finance vice president) was present and participated in the procedure. Procedure Note Patricia Kitchen PA - 08/29/2024 EXAMINATION: ULTRASOUND-GUIDED THYROID FINE NEEDLE ASPIRATION HISTORY: 68-year-old female with right hypoechoic isthmus nodule here for fine-needle aspiration COMPARISON: Thyroid sonogram 08/04/2024 FINDINGS: Biopsy #: 1 Nodule reference number based on prior diagnostic ultrasound: 1 Size: 1.9 cm craniocaudal x 0.9 cm transverse x 1.4 cm AP Maximum Size: 1.9 cm Location: Right isthmus ACR TI-RADS risk category: 4 Reason for biopsy: meets ACR TI-RADS criteria FINE NEEDLE ASPIRATION: The procedure for ultrasound-guided FNA and its benefits and risks were explained to the patient. Risks were explained to include, but not be limited to, hemorrhage, infection, injury to adjacent organs, non-diagnostic specimen and adverse reaction to medications administered. The patient voiced understanding and wished to proceed and signed the consent form. A site was localized for fine needle aspiration. The site was prepped and draped in the usual manner. 3 mL of 1% Lidocaine was used for local anesthesia. 6 passes were made with 25 gauge needles into the lesion. Appropriate needle localization was documented with continuous sonographic guidance. The fine needle aspirates were handed to the electrophysiology technician present during the procedure. Please refer to the dictated cytology report for final interpretation. The patient's skin was cleaned and dressed. The patient tolerated the procedure well without immediate complication. Patricia Kitchen PA-C, the Physician Electron Beam Photo Mask Maker, was present from the beginning to the end of the procedure. Patricia VO performed the biopsy. Dr. Seth Rodriguez (finance vice president) was present and participated in the procedure. IMPRESSION: 1. Successful thyroid biopsy of the right isthmus thyroid nodule. Electronically signed by: Patricia Kitchen PA-C us Vane Zamora CRUSHING MACHINE OPERATOR IMG US PROCEDURES Final Resu lt * Cytology (08/29/2024 2:44 PM CDT) Fluid (Thyroid Gland (Cytology)) 08/29/2024 2:15 PM CDT Narrative PATHOLOGY [facility] - 08/31/2024 9:13 PM CDT EPIC results best viewed via link to PDF [facility] [place] [address] Note to Patients: This report may contain a detailed description of human tissue sent by a health care provider to the laboratory for pathologic evaluation. The content of this report is essential for diagnosis and may provide important critical findings. This information may be unfamiliar to patients to review without a medical professional present. It is advised that the patient review this report in the presence of a health care provider who can answer questions and explain the details. CYTOPATHOLOGY REPORT FINAL Patient Name: ASHLEY THOMSON Gender: F : 1955 (Age: 68) Address: [address] [place] [address] [place] [address] Hospital #: [id number] Taken:08/29/2024 Received:08/29/2024 Reported: 08/31/2024 Patient Type: [facility] Ancillary Service: Radiology Location: Physician(s): Mynor Mccormick PA David Yablonsky, DO FINAL DIAGNOSIS A. Thyroid, isthmus, ultrasound guided fine needle aspiration: - Benign rcwp/08/31/2024 21:13 By this signature, I attest that the above diagnosis is based upon my personal examination of the slides(and/or other material indicated in the diagnosis). Bhavesh Harding DO Report Electronically Reviewed and Signed Out By Bhavesh Harding DO 08/31/2024 21:13:48 Kirk Velasquez, CT(ASCP), CFIAC Gross Description A. Thyroid, isthmus, ultrasound guided fine needle aspiration: 3 Pap stained smear(s) and 3 Diff-Quik stained smear(s). 1 ThinPrep prepared from needle rinse tube. Aspirated by clinician. (LL) Material for Thyroseq was collected but not requested as reflex testing. Contact pathology at for additional testing Clinical Diagnosis and History The patient is a 68 year old female who presents with an isthmus thyroid nodule. REPORT IMAGES AND SCANNED DOCUMENTS, IF INCLUDED, ONLY VIEWABLE IN PDF VERSION OF REPORT The performance characteristics of some immunohistochemical stains, in-situ hybridization and fluorescence in-situ hybridization tests and immunophenotyping by flow cytometry cited in this report (if any) were determined by the Surgical Pathology and Flow Cytometry Departments at [facility] as part of an ongoing aerospace quality engineer program and in compliance with federally mandated regulations drawn from the Clinical Laboratory Improvement Act of 1988 (CLIA '88). Some of these tests rely on the use of analyte specific reagents and are subject to specific labeling requirements by the US Food and Drug Administration. Such diagnostic tests may only be performed in a facility that is certified by the Department of Health and Human Services as a high complexity laboratory under CLIA '88. The FDA has determined that such clearance or approval is not necessary. This test is used for clinical purposes. It should not be regarded as investigational or for research. Nevertheless, federal rules concerning the medical use of analyte specific reagents require that the following disclaimer be attached to the report: This test was developed and its performance characteristics determined by the Surgical Pathology and Flow Cytometry Departments of [facility]. It has not been cleared or approved by the U. S. Food and Drug Administration. Vane Zamora NP LAB CYTOLOGY ORDERABLES Bonnie l Result PATHOLOGY [facility] 3rd Floor [place], [place] [phone] * US Thyroid (08/04/2024 4:16 PM CDT) Anatomical Region Laterality Modality Head and Neck N/A Ultrasound 08/18/2024 8:32 AM CDT Narrative 08/18/2024 8:35 AM CDT EXAM DESCRIPTION: US THYROID REASON FOR STUDY: Provided history of single nontoxic thyroid nodule. No provided patient complaints. No provided past medical, to include cancer, history. No provided past surgical history. TECHNIQUE: Sonographic evaluation of the thyroid performed utilizing grayscale and color Doppler imaging techniques. Images saved to PACS. COMPARISON: No prior relevant imaging available at time of interpretation. FINDINGS: RIGHT: The right thyroid lobe measures 4.2 x 1.9 x 2.1 cm. The right thyroid lobe is normal in echotexture. LEFT: The left thyroid lobe measures 3.9 x 1.8 x 1.5 cm. The left thyroid lobe is normal in echotexture. ISTHMUS: The isthmus measures 0.3 cm AP. The isthmus is normal in echotexture. There is a 1.9 x 0.9 x 1.4 cm circumscribed predominantly solid, with heteroechoic to include predominantly hypoechoic solid components, wider than tall isthmus nodule without suspicious echogenic internal foci. By ACR TI-RADS criteria: TR 4: FNA biopsy recommended as greater than 1.5 cm; otherwise, surveillance recommended (in 12 months) as greater than 1 cm. VASCULARITY: Normal. OTHER: No other significant finding. IMPRESSION: Thyroid nodule as detailed above. ACR TI-RADS Risk Category: As above. REFERENCE: According to the ACR Thyroid Imaging, Reporting and Data System (TI-RADS): White Paper of the ACR TI-RADS Committee Jul, 2016 recommendations regarding the management of thyroid nodules are as follows: 1. TI-RADS 1: Risk of malignancy <2%, no FNA or follow up required. 2. TI-RADS 2: Risk of malignancy <2%, no FNA or follow up required. 3. TI-RADS 3: Risk of malignancy 2%-5%. Nodules 1.5 cm or greater follow up at 1, 3 and 5 years recommended, for nodules 2.5 cm or greater FNA recommended. 4. TI-RADS 4: Risk of malignancy 5%-20% Nodules 1.0 cm or greater follow up at 1, 2, 3 and 5 years recommended, for nodules 1.5 cm or greater FNA recommended 5. TI-RADS 5: Risk of malignancy >20%. Nodules 0.5 cm or greater annual follow up for 5 years recommended, for nodules 1.0 cm or greater FNA recommended. The ACT TI-RADS committee recommends targeting no more than two nodules for FNA. If three or more nodules meet criteria for FNA, the two with the most suspicious appearance based on ACR TI-RADS points should be sampled. THIS IS AN ELECTRONICALLY VERIFIED FINAL REPORT 08/18/2024 8:35 AM - Electronically signed by Tyler Knox M.D. OSEAS: OSEAS Report ID: [id number] Reading Location: [place] [address] Procedure Note Tyler Knox MD - 08/18/2024 EXAM DESCRIPTION: US THYROID REASON FOR STUDY: Provided history of single nontoxic thyroid nodule. No provided patient complaints. No provided past medical, to includecancer, history. No provided past surgical history. TECHNIQUE: Sonographic evaluation of the thyroid performed utilizinggrayscale and color Doppler imaging techniques. Images saved to PACS. COMPARISON: No prior relevant imaging available at time of interpretation. FINDINGS: RIGHT: The right thyroid lobe measures 4.2 x 1.9 x 2.1 cm. The right thyroid lobe is normal in echotexture. LEFT: The left thyroid lobe measures 3.9 x 1.8 x 1.5 cm. The leftthyroid lobe is normal in echotexture. ISTHMUS: The isthmus measures 0.3 cm AP. The isthmus is normal in echotexture. There is a 1.9 x 0.9 x 1.4 cm circumscribed predominantly solid, with heteroechoic to include predominantly hypoechoic solidcomponents, wider than tall isthmus nodule without suspicious echogenic internal foci.By ACR TI-RADS criteria: TR 4: FNA biopsy recommended as greater than 1.5 cm; otherwise, surveillance recommended (in 12 months) as greater than 1 cm. VASCULARITY: Normal. OTHER: No other significant finding. IMPRESSION: Thyroid nodule as detailed above. ACR TI-RADS Risk Category: As above. REFERENCE: According to the ACR Thyroid Imaging, Reporting and Data System (TI-RADS): White Paper of the ACR TI-RADS Committee Jul, 2016recommendations regarding the management of thyroid nodules are as follows: 1. TI-RADS 1: Risk of malignancy <2%, no FNA or follow up required. 2. TI-RADS 2: Risk of malignancy <2%, no FNA or follow up required. 3. TI-RADS 3: Risk of malignancy 2%-5%. Nodules 1.5 cm or greater followup at 1, 3 and 5 years recommended, for nodules 2.5 cm or greater FNArecommended. 4. TI-RADS 4: Risk of malignancy 5%-20% Nodules 1.0 cm or greater followup at 1, 2, 3 and 5 years recommended, for nodules 1.5 cm or greater FNA recommended 5. TI-RADS 5: Risk of malignancy >20%. Nodules 0.5 cm or greater annual follow up for 5 years recommended, for nodules 1.0 cm or greater FNA recommended. The ACT TI-RADS committee recommends targeting no more than two nodulesfor FNA. If three or more nodules meet criteria for FNA, the two with themost suspicious appearance based on ACR TI-RADS points should be sampled. THIS IS AN ELECTRONICALLY VERIFIED FINAL REPORT 08/18/2024 8:35 AM - Electronically signed by Tyler Knox M.D. OSEAS: OSEAS Report ID: [id number] Reading Location: [id number] us Vane Zamora CRUSHING MACHINE OPERATOR IMG US PROCEDURES Final Resu lt * Dexa Axial Skeleton Bone Density 1 [...] signed by: Darwin Maynard M.D. Alison Ramon NP IMG DXA PROCEDURES Final Res ult * COLONOSCOPY IMAGES (02/11/2015) Anatomical Region Laterality Modality Other Narrative 02/11/2015 Ordered by an unspecified provider. us Historical Provider MD LANGE PROCEDURE ORDERABLES F inal Result from Last 3 Months or Most Recently Relevant to Health Maintenance Insurance MEDICARE [facility] SENIOR SUPPLEMENT MEDICARE AET SENIOR SUPPLEMENT MEDICARE Care Teams Project Portfolio Analyst Relationship Specialty Start Date End Date Lj Chamberlain DO PCP - General Internal Medicine 10/05/16
--- OUTSIDE RECORDS SUMMARY | 2024-09-28 09:39 | XMS_ITS | Referral Summary ---
Author Organization [facility] Building B Address [address] [place] [address] Care Team Providers Care Manager Planning Name Role Phone Lj Chamberlain DO Primary Care Provider +1- [phone] Encounters Date Type Department Care Team Description 08/29/2024 1:45 PM CDT - 08/29/2024 11:59 PM CDT Hospital Encounter [facility]) [address] [place] [address] Nontoxic single thyroid nodule Discharge Disposition: Discharge to home or self care 08/23/2024 Telephone [facility] Radiology [address] [place] [address] Montserrat Serrano RN 08/23/2024 Telephone [facility] Radiology [address] [place] [address] Montserrat Serrano RN 08/22/2024 Telephone [facility] Radiology [address] [place] [address] Montserrat Serrano RN 08/04/2024 3:26 PM CDT - 08/04/2024 11:59 PM CDT Hospital Encounter [facility] [address] [place] [address] Nontoxic single thyroid nodule Discharge Disposition: Discharge to home or self care from Last 3 Months Allergies Active Allergy Reactions Criticality Noted Date Comments Amlodipine Swelling,Rash Medium Reaction: swelling, rash, , Reaction: swelling, rash, Codeine Nausea only,Vomiting Reaction: Nausea, Vomiting, Ramipril Medications aqgoukii-xuk-xmw n-FA-lutein (CENTRUM SILVER WOMEN) 8 mg iron-400 mcg-300 mcg tablet 0 0 7 Active omega 4-jse-vuv-fish oil (FISH OIL) 300-1,000 mg capsule,delayed release(DR/EC) [...] testing [facility] Dr[facility] Zachary Heard [phone] [address] [place] [address] Venous stasis 09/12/2020 Primary osteoarthritis of both [...] on file Legal Sex Female 6:28 PM MS SQL DBA Gender Identity Not on file Sexual Orientation Not on file Last Filed Vital Signs Vital Sign Reading Time Taken Comments Blood Pressure 130/82 01/31/2024 8:27 AM MS SQL DBA Pulse 68 01/31/2024 8:27 AM MS SQL DBA Temperature 36.6 C (97.9 F) 01/31/2024 8:27 AM MS SQL DBA Respiratory Rate 20 01/31/2024 8:27 AM MS SQL DBA Oxygen Saturation 99% 01/31/2024 8:27 AM MS SQL DBA Inhaled Oxygen Concentration - - Weight 153.8 kg (339 lb) 01/31/2024 8:27 AM MS SQL DBA Height 172.7 cm (5' 8) 01/31/2024 8:27 AM MS SQL DBA Body Mass Index 51.54 01/31/2024 8:27 AM MS SQL DBA Plan of Treatment Not on file Procedures [...] nodule. Electronically signed by: Patricia Kitchen PA-C Narrative 08/29/2024 4:59 PM CDT EXAMINATION: ULTRASOUND-GUIDED THYROID [...] fine needle aspirates were handed to the core stripper present during the procedure. Please refer to the dictated cytology report for final interpretation. The patient's skin was cleaned and dressed. The patient tolerated the procedure well without immediate complication. Patricia Kitchen PA-C, the Physician Endless Bed Drum Sander, was present from the beginning to the end of the procedure. Patricia VO performed the biopsy. Dr. Seth Rodriguez (vice president financial) was present and participated in the procedure. [...] fine needle aspirates were handed to the core stripper present during the procedure. Please refer to the dictated cytology report for final interpretation. The patient's skin was cleaned and dressed. The patient tolerated the procedure well without immediate complication. Patricia Kitchen PA-C, the Physician Endless Bed Drum Sander, was present from the beginning to the end of the procedure. Patricia VO performed the biopsy. Dr. Seth Rodriguez (vice president financial) was present and participated in the procedure. IMPRESSION: 1. Successful thyroid biopsy of the right isthmus thyroid nodule. Electronically signed by: Patricia Kitchen PA-C us Vane Zamora NP IMG US PROCEDURES Final Resu lt * Cytology (08/29/2024 2:44 PM CDT) Fluid (Thyroid Gland (Cytology)) 08/29/2024 2:15 PM CDT Narrative PATHOLOGY [facility] - 08/31/2024 9:13 PM CDT EPIC results best viewed via link to PDF [facility]en Fermin [facility] [place] [address] Note to Patients: This report may contain [...] Gender: F : 1955 (Age: 68) Address: [address] [place] [address] , [place] [address] [facility] #: [id number] Taken:08/29/2024 Received:08/29/2024 Reported: 08/31/2024 Patient Type: [facility] Ancillary Service: Radiology Location: Physician(s): Mynor Mccormick PA David Yablonsky, FINAL DIAGNOSIS A. Thyroid, isthmus, ultrasound guided fine needle aspiration: - Benign rcwp/08/31/2024 21:13 By this signature, I attest that the above diagnosis is based upon my personal examination of the slides(and/or other material indicated in the diagnosis). Bhavesh Harding DO Report Electronically Reviewed and Signed Out By Bhavesh Harding DO 08/31/2024 21:13:48 Kirk Velasquez, CT([facility]), CFIAC Gross Description A. Thyroid, isthmus, ultrasound [...] Pathology and Flow Cytometry Departments at [facility] as part of an ongoing quality intern program and in compliance with federally mandated [...] Pathology and Flow Cytometry Departments of [facility]. It has not been cleared or approved by the U. S. Food and Drug Administration. Vane Zamora COMMUNITY HEALTH CONSULTANT LAB CYTOLOGY ORDERABLES Bonnie rubio Result PATHOLOGY [facility] 3rd Floor [place], [place] [phone] * US Thyroid (08/04/2024 4:16 PM CDT) [...] Tyler Knox M.D. OSEAS: OSEAS Report ID: [id number] Reading Location: [id number] Procedure Note Tyler Knox MD - 08/18/2024 [...] Tyler Knox M.D. OSEAS: OSEAS Report ID: [id number] Reading Location: [place] [address] us Vane Zamora COMMUNITY HEALTH CONSULTANT IMG US PROCEDURES Final Resu lt * [...] signed by: Darwin Maynard M.D. Alison Ramon COMMUNITY HEALTH CONSULTANT IMG DXA PROCEDURES Final Res ult * COLONOSCOPY IMAGES (02/11/2015) Anatomical Region Laterality Modality Other Narrative 02/11/2015 Ordered by an unspecified provider. Historical Provider GI PROCEDURE ORDERABLES F inal Result from Last 3 Months or Most Recently Relevant to Health Maintenance Insurance MEDICARE [employer] SENIOR SUPPLEMENT MEDICARE [employer] SENIOR SUPPLEMENT MEDICARE Care Teams Manager Planning Relationship Specialty Start Date End Date Lj Chamberlain DO PCP - General Internal Medicine 10/05/16
--- OUTSIDE RECORDS SUMMARY | 2024-09-28 09:39 | XMS_ITS | Clinical Summary ---
Author Organization [facility] Address [address] [place] [address] Care Team Providers Care Payment Manager Name Role Phone Lj Chamberlain DO Primary Care Provider [phone] Ran Soriano MD Unavailable Source Comments [facility],non-owned Affiliates and Associated Physician Practices is amultiple site organization consisting of ambulatory clinics and hospital sitesin [place], [place], [place] and [place]. This disclosure is being madepursuant to the Care Everywhere program and may not contain all information available regarding this patient. Last updated 17.[facility] [employer] Allergies Active Allergy Reactions Criticality Noted Date [...] by mouth once daily 02/01/20 15 Active [place]-3 Fatty Acids (FISH OIL PO) Take 2,000 [...] 8:46 AM CDT Height 172.7 cm (5' 8) 09/12/2020 8:46 AM CDT Body Mass Index [...] 2013 SCREENING FOR DIABETES 09/06/2020 COVID-19 VACCINE (1 - season) 2023 DEPRESSION SCREENING 03/15/2024 INFLUENZA VACCINE (#1) 2024 9, 01/05/2013, 2012, Additional history exists HEPATITIS B [...] track( 018 10:41 AM CDT) Nikia Damian, ZACHARY Note: Expected end date: Ongoing Interventions: Take all medications as prescribed Let your doctor know right away about any changes in your medications Insurance [facility] MEDICARE MEDICARE SUPPLEMENT PAYOR GENERIC Care Teams Payment Manager Relationship Specialty Start Date End Date Lj Chamberlain DO PCP - General 08/11/17 [place] [id number] [address] [id number] Surgeon Orthopedic Surgery 09/06/20
--- OUTSIDE RECORDS SUMMARY | 2024-09-28 09:39 | XMS_ITS | Continuity of Care Document ---
Author Organization [facility] Address [address] [place] [address] [place] [address] Phone Care Team Providers Care Instrument Technician Name Role Phone Neymar Abrams MD Unavailable Unavailable Procedures Procedure Date Office/outpatient Visit, [facility] Removal Of Skin Lesion Advance Directives Directive Yes / No Effective Date File Name No Information Encounters Encounter Description Practice Location Reason(s) For Visit Diagnoses Date Provider Providers Copied on Encounter Office/outpat ient Visit, [facility], [id number] [place] [address] [address], [place], [place], [id number], [place] tel:[phone] [address]ons Griselda Wilkins No Information 1 Aliza Blackmon. [address] [facility] [address], [place], [place], [id number], [place]. tel:[phone] Family History Family Member Type Diagnosis Age At Onset No Information Payers Payer name Insurance type Covered green party ID Authoriza tidru(s) [facility] [id number] Social History Type Description Quantity Date Captured [...]
== END 2024-09-28 09:32 | disposition home or self-care (01) ==
PROVIDERS: PCP Internal Medicine; Visit Provider Clinical Nurse Specialist
DX: Z12.31 Encounter for screening mammogram for malignant neoplasm of breast (principal)
CPT/HCPCS: 77063; 77067